=== PATIENT | female | born 1990 | race Two or more races ===

== ENCOUNTER → 2017-12-18 08:10 | Outpatient (CLI) | payer OTHER, SELFPAY ==
--- NOTE | 2017-12-18 08:10 | DT_ITS ---
This patient was seen during an EMR downtime December 14, 2017 - December 21, 2017. This patient may have a combination of paper and electronic documentation or all paper documentation. All documentation is viewable within the e-chart portion of [facility] for each patient visit.
[2017-12-22 16:01] LABS: BUN 11 mg/dL (7-18); Calcium,Total 8.8 mg/dL (8.5-10.1); Cholesterol 201 mg/dL (200); Creatinine, Serum 0.58 mg/dL (0.55-1.02); EST Glomerular Filtration Rate 135 mL/min (>60); Est Glom Filt Rate - Afr Amer 164 mL/min (>60); Glucose 96 mg/dL (74-106)
[2017-12-22 16:02] LABS: Anion Gap 7 (5-15); Chloride 109 mmol/L (98-107); High Density Lipoprotein 37 mg/dL; Potassium 4.1 mmol/L (3.5-5.1); Sodium Level 142 mmol/L (136-145); Triglycerides 150 mg/dL; Very Low Density Lipoprotein 30 mg/dL (5-40)
== END ==
PROVIDERS: Visit Provider Family Medicine
DX: Z00.00 Encounter for general adult medical examination without abnormal findings (principal); E78.5 Hyperlipidemia, unspecified
CPT/HCPCS: 36415; 80048; 80061

== ENCOUNTER → 2018-08-31 18:12 | Outpatient (CLI) | payer OTHER, SELFPAY ==
[2018-09-03 12:07] LABS: Chlamydia By Nucleic Acid AMP Negative (Negative)
[2018-09-04 09:31] LABS: Gonococcus By Nucleic Acid AMP Negative (Negative)
[2018-09-04 09:32] LABS: HPV Reflexed? NOT INDICATED
== END ==
PROVIDERS: Referring Provider Nurse Practitioner Adult Health; Visit Provider Nurse Practitioner Adult Health
DX: Z12.4 Encounter for screening for malignant neoplasm of cervix (principal)
CPT/HCPCS: 87491; 87591; 88175; G0145